=== PATIENT | male | born 1975 | race American Indian/Alaskan Native ===

== ENCOUNTER 2018-02-02 16:14 | Emergency (ER) | payer SELFPAY ==
[2018-02-02] MEDS ORDERED: ULTRAM PO ONE (19:14)
[2018-02-02] MEDS ORDERED: DELTASONE PO ONE (19:14)
--- NOTE | 2018-02-02 19:28 | Emergency Department Report ---
ED General Adult HPI - General Chief complaint: Extremity Injury, Lower Stated complaint: LEFT ANKLE AND RIGHT ELBOW PAIN Time Seen by Provider: 02/02/18 19:14 Source: patient Mode of arrival: Ambulatory Limitations: No Limitations - History of Present Illness Initial comments: Patient 42-year-old male with a history of gout patient presents for gout exacerbation to left foot and ankle and right elbow states pain and swelling 5/10 7 days usual treatment indomethacin for exacerbation however out of indomethacin along with prednisone maintenance doses of allopurinol 200 mg patient also out of allopurinol also requests a refill of Percocet patient currently does not have PCP patient denies fever chills patient is currently ambulatory 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 Onset/Timin -: Sudden Location: upper extremity, lower extremity Radiation: extremity Severity scale (0 -10): 5 Quality: aching Consistency: constant Worsens with: movement Treatments Prior to Arrival: none - Related Data Previous Rx's Medication Instructions Recorded Last Taken Type Hydrocodone Bit/Acetaminophen 1 each PO Q4H #20 tablet 08/05/13 Unknown Rx [Lortab 5-500 Tablet] Indomethacin 50 mg PO Q8H #40 capsule 08/05/13 Unknown Rx predniSONE [Deltasone] 50 mg PO QDAY #3 tab 08/05/13 Unknown Rx Acetaminophen/Codeine [Tylenol 1 tab PO Q8H PRN #7 tab 02/02/18 Unknown Rx /Codeine # 3 tab] Allopurinol 100 mg PO BID #60 tablet 02/02/18 Unknown Rx Indomethacin 50 mg PO Q8H 10 Days #30 capsule 02/02/18 Unknown Rx predniSONE [Deltasone] 40 mg PO QDAY 5 Days #20 tab 02/02/18 Unknown Rx Allergies Allergy/AdvReac Type Severity Reaction Status Date / Time No Known Allergies Allergy Verified 08/05/13 15:24 ED Review of Systems ROS: Stated complaint: LEFT ANKLE AND RIGHT ELBOW PAIN Other details as noted in HPI Constitutional: denies: chills, fever Eyes: denies: eye pain, eye discharge, vision change ENT: denies: ear pain, throat pain Respiratory: denies: cough, shortness of breath, wheezing Cardiovascular: denies: chest pain, palpitations Endocrine: no symptoms reported Gastrointestinal: denies: abdominal pain, nausea, diarrhea Genitourinary: denies: urgency, dysuria Musculoskeletal: joint swelling, arthralgia, myalgia Skin: denies: rash, lesions Neurological: denies: headache, weakness, paresthesias Psychiatric: denies: anxiety, depression Hematological/Lymphatic: denies: easy bleeding, easy bruising ED Past Medical Hx - Past Medical History Additional medical history: gout - Social History Smoking Status: Never Smoker Substance Use Type: Alcohol - Medications Home Medications: Home Medications Medication Instructions Recorded Confirmed Last Taken Type Hydrocodone Bit/Acetaminophen 1 each PO Q4H #20 tablet 08/05/13 Unknown Rx [Lortab 5-500 Tablet] Indomethacin 50 mg PO Q8H #40 capsule 08/05/13 Unknown Rx predniSONE [Deltasone] 50 mg PO QDAY #3 tab 08/05/13 Unknown Rx Acetaminophen/Codeine [Tylenol 1 tab PO Q8H PRN #7 tab 02/02/18 Unknown Rx /Codeine # 3 tab] Allopurinol 100 mg PO BID #60 tablet 02/02/18 Unknown Rx Indomethacin 50 mg PO Q8H 10 Days #30 capsule 02/02/18 Unknown Rx predniSONE [Deltasone] 40 mg PO QDAY 5 Days #20 tab 02/02/18 Unknown Rx ED Physical Exam - General Limitations: No Limitations General appearance: alert, in no apparent distress - Head Head exam: Present: atraumatic, normocephalic - Eye Eye exam: Present: normal appearance - ENT ENT exam: Present: mucous membranes moist - Neck Neck exam: Present: normal inspection - Respiratory Respiratory exam: Present: normal lung sounds bilaterally. Absent: respiratory distress - Cardiovascular Cardiovascular Exam: Present: regular rate, normal rhythm. Absent: systolic murmur, diastolic murmur, rubs, gallop - GI/Abdominal GI/Abdominal exam: Present: soft - Rectal Rectal exam: Present: deferred - Extremities Exam Extremities exam: Present: tenderness, normal capillary refill, joint swelling ( left foot and right elbow swelling warm no edema no weep no fever ), calf tenderness - Expanded Upper Extremity Exam Right Elbow exam: Present: tenderness, swelling, pain w/ pronation/supination, tenderness over radial head. Absent: abrasion, laceration, ecchymosis, deformity, crepidus, dislocation, erythema, effusion Forearm Wrist exam: Present: normal inspection, full ROM. Absent: tenderness, swelling, abrasion, laceration, ecchymosis, deformity, crepidus, dislocation, erythema, tenderness over anatomical snuff box, pain with axial thumb loading Hand Wrist exam: Present: normal inspection, full ROM. Absent: tenderness, swelling, abrasion Neuro motor exam: Present: wrist extension intact, thumb opposition intact, thumb IP flexion intact, thumb adduction intact, fingers 2-5 abduction intact Neurosensory exam: Present: 2-point discrimination, radial nerve intact, ulnar nerve intact, median nerve intact Vascular: Present: normal capillary refill, radial pulse, brachial pulse, ulnar pulse. 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 Absent : abrasion, laceration, ecchymosis, deformity, crepidus, dislocation, erythema, amputation, puncture wound, foreign body, calcaneal tenderness, tenderness at base of 5th metatarsal, nail avulsion, subungual hematoma Neuro vascular tendon exam: Present: no vascular compromise. Absent: pulse deficit, abnormal cap refill, motor deficit, sensory deficit, tendon deficit, extremity cold to touch, pallor, abnormal 2-point discrimination, decreased fine /light touch, foot drop, peroneal nerve deficit, significant pain with passive ROM of distal joint Gait: Positive: observed and limited by pain - Back Exam Back exam: Present: normal inspection, full ROM. Absent: tenderness, CVA tenderness (R), CVA tenderness (L), muscle spasm, paraspinal tenderness, vertebral tenderness, rash noted ED Course Vital Signs 02/02/18 16:42 Temperature 98.6 F Pulse Rate 74 Respiratory 18 Rate Blood Pressure 120/60 O2 Sat by Pulse 99 Oximetry ED Medical Decision Making - Medical Decision Making gout exacerbation, plan: indomethacin 50 mg po tid with meals, prednisone 40 mg po daily x 5 days, start allopurinol 200 mg po daily after completion of indomethacin follow up with pcp in 2-3 days pt verbalized agreement and understanding of same. Critical care attestation.: If time is entered above; I have spent that time in minutes in the direct care of this critically ill patient, excluding procedure time. ED Disposition Clinical Impression: Gout attack Qualifiers: Gout site: elbow Gout etiology: idiopathic Laterality: right Qualified Code(s) : M10.021 - Idiopathic gout, right elbow Disposition: DC- TO HOME OR SELFCARE Is pt being admited?: No Does the pt Need Aspirin: No Condition: Good Instructions: Acute Gouty Arthritis (ED) Prescriptions: Acetaminophen/Codeine [Tylenol /Codeine # 3 tab] 1 tab PO Q8H PRN #7 tab PRN Reason: severe pain Allopurinol 100 mg PO BID #60 tablet Indomethacin 50 mg PO Q8H 10 Days #30 capsule predniSONE [Deltasone] 40 mg PO QDAY 5 Days #20 tab Referrals: [facility] [Outside] - 3-5 Days Forms: Work/School Release Form(ED) Time of Disposition: 19:37
[2018-02-02 20:11] VITALS: BP 122/63
== END 2018-02-02 20:26 | disposition home or self-care (01) ==
LOC: ED 16:14
DX: M10.9 Gout, unspecified (principal)
CPT/HCPCS: 99282; J7512

== ENCOUNTER 2018-02-16 13:31 | Emergency (ER) | payer SELFPAY | END 2018-02-16 13:32 | disposition left against medical advice (07) | LOC: ED 13:31 | DX: Z76.0 Encounter for issue of repeat prescription (principal); Z53.21 Procedure and treatment not carried out due to patient leaving prior to being seen by health care provider ==

== ENCOUNTER 2018-02-18 17:31 | Emergency (ER) | payer OTHER ==
[2018-02-18 17:37] VITALS: BP 129/67
[2018-02-18] MEDS ORDERED: MOTRIN PO ONE (19:24)
[2018-02-18] MEDS ORDERED: DELTASONE PO ONE (19:24)
--- NOTE | 2018-02-18 19:29 | Emergency Department Report ---
<TAYLOR MONTES - Last Filed: 02/18/18 19:25> ED Lower Extremity HPI - General Chief Complaint: Extremity Injury, Lower Stated Complaint: MED REFILL Time Seen by Provider: 02/18/18 19:16 Source: patient Mode of arrival: Ambulatory Limitations: No Limitations - History of Present Illness Initial Comments: Patient 42-year-old -I[place] male with history of gout presents for left ankle pain and swelling 2 days states gout medicine for 2 weeks started allopurinol 2 days ago however pain and swelling had already begun usual. Medical medicine his indomethacin and prednisone has a follow-up appointments outside medical clinic in 2 months is no fever no chills patient is ambulatory no open wound discharge or drainage no numbness no tingling no fall injury or trauma MD Complaint: ankle injury Onset/Timin -: days(s) Injury: Ankle: Left (pain swelling aching ) Type of Injury: other (gout ) Severity scale (0 -10): 5 Improves With: NSAID Worsens With: weight bearing, movement, palpation Context: other (gout exacerbation ) Associated Symptoms: swelling, ambulatory. denies: numbness, tingling - Related Data Previous Rx's Medication Instructions Recorded Last Taken Type Hydrocodone Bit/Acetaminophen 1 each PO Q4H #20 tablet 08/05/13 Unknown Rx [Lortab 5-500 Tablet] Indomethacin 50 mg PO Q8H #40 capsule 08/05/13 Unknown Rx predniSONE [Deltasone] 50 mg PO QDAY #3 tab 08/05/13 Unknown Rx Acetaminophen/Codeine [Tylenol 1 tab PO Q8H PRN #7 tab 02/02/18 Unknown Rx /Codeine # 3 tab] Allopurinol 100 mg PO BID #60 tablet 02/02/18 Unknown Rx Indomethacin 50 mg PO Q8H 10 Days #30 capsule 02/02/18 Unknown Rx predniSONE [Deltasone] 40 mg PO QDAY 5 Days #20 tab 02/02/18 Unknown Rx Indomethacin 50 mg PO TID #30 capsule 02/18/18 Unknown Rx predniSONE [Deltasone] 40 mg PO DAILY #10 tablet 02/18/18 Unknown Rx Allergies Allergy/AdvReac Type Severity Reaction Status Date / Time No Known Allergies Allergy Verified 08/05/13 15:24 ED Review of Systems ROS: Stated complaint: MED REFILL Other details as noted in HPI Constitutional: denies: chills, fever Eyes: denies: eye pain, eye discharge, vision change ENT: denies: ear pain, throat pain Respiratory: denies: cough, shortness of breath, wheezing Cardiovascular: denies: chest pain, palpitations Endocrine: no symptoms reported Gastrointestinal: denies: abdominal pain, nausea, diarrhea Genitourinary: denies: urgency, dysuria Musculoskeletal: joint swelling, arthralgia. denies: back pain, myalgia Skin: denies: rash, lesions Psychiatric: denies: anxiety, depression Hematological/Lymphatic: denies: easy bleeding, easy bruising ED Past Medical Hx - Past Medical History Previous Medical History?: No Additional medical history: gout - Surgical History Past Surgical History?: No - Social History Smoking Status: Never Smoker Substance Use Type: None - Medications Home Medications: Home Medications Medication Instructions Recorded Confirmed Last Taken Type Hydrocodone Bit/Acetaminophen 1 each PO Q4H #20 tablet 08/05/13 Unknown Rx [Lortab 5-500 Tablet] Indomethacin 50 mg PO Q8H #40 capsule 08/05/13 Unknown Rx predniSONE [Deltasone] 50 mg PO QDAY #3 tab 08/05/13 Unknown Rx Acetaminophen/Codeine [Tylenol 1 tab PO Q8H PRN #7 tab 02/02/18 Unknown Rx /Codeine # 3 tab] Allopurinol 100 mg PO BID #60 tablet 02/02/18 Unknown Rx Indomethacin 50 mg PO Q8H 10 Days #30 capsule 02/02/18 Unknown Rx predniSONE [Deltasone] 40 mg PO QDAY 5 Days #20 tab 02/02/18 Unknown Rx Indomethacin 50 mg PO TID #30 capsule 02/18/18 Unknown Rx predniSONE [Deltasone] 40 mg PO DAILY #10 tablet 02/18/18 Unknown Rx ED Physical Exam - General Limitations: No Limitations General appearance: alert, in no apparent distress - Head Head exam: Present: atraumatic, normocephalic - Eye Eye exam: Present: normal appearance - ENT ENT exam: Present: mucous membranes moist - Neck Neck exam: Present: normal inspection - Respiratory Respiratory exam: Present: normal lung sounds bilaterally. Absent: respiratory distress - Cardiovascular Cardiovascular Exam: Present: regular rate, normal rhythm. Absent: systolic murmur, diastolic murmur, rubs, gallop - GI/Abdominal GI/Abdominal exam: Present: soft, normal bowel sounds - Rectal Rectal exam: Present: deferred - Extremities Exam Extremities exam: Present: tenderness (left lateral ankle ), normal capillary refill, joint swelling. Absent: pedal edema, calf tenderness - Expanded Lower Extremity Exam Left Ankle exam: Present: tenderness, swelling. Absent: abrasion, laceration, ecchymosis, deformity, crepidus, dislocation, erythema, anterior draw sign Foot/Toe exam: Present: normal inspection, full ROM, swelling. Absent: tenderness, abrasion, laceration, ecchymosis, deformity, crepidus, dislocation, erythema, amputation, puncture wound, foreign body, calcaneal tenderness, tenderness at base of 5th metatarsal, nail avulsion, subungual hematoma Neuro vascular tendon exam: Present: no vascular compromise. Absent: pulse deficit, abnormal cap refill, motor deficit, sensory deficit, tendon deficit, extremity cold to touch, pallor, abnormal 2-point discrimination, decreased fine /light touch, foot drop, peroneal nerve deficit, significant pain with passive ROM of distal joint Gait: Positive: observed and normal - Back Exam Back exam: Present: normal inspection - Neurological Exam Neurological exam: Present: alert, oriented X3, CN II-XII intact, normal gait, reflexes normal. Absent: motor sensory deficit - Psychiatric Psychiatric exam: Present: normal affect, normal mood - Skin Skin exam: Present: warm, dry, intact, normal color. Absent: rash ED Course Vital Signs 02/18/18 17:35 Temperature 98.2 F Pulse Rate 91 H Respiratory 16 Rate Blood Pressure 129/67 O2 Sat by Pulse 99 Oximetry ED Lower Extremity MDM - Medical Decision Making As a gout flare, mild ankle swelling no fever mild pain with rotation ppepb+2, pt is ambulatory without gait disturbance pain improved with nsaids and prednisone given in ed plan: dc home in stable condition, with rx for prednisone 40mg po daily x 5 days, indomethacin 50mg po tid with meals x 10 days , restart allopurinol po after completion of indomethacin follow up with [facility] as scheduled , pt verbalized agreement and understanding with discharge plan. Critical care attestation.: If time is entered above; I have spent that time in minutes in the direct care of this critically ill patient, excluding procedure time. ED Disposition Disposition: DC-01 TO HOME OR SELFCARE Is pt being admited?: No Does the pt Need Aspirin: No Condition: Good Instructions: Low Purine Diet (ED), Acute Gouty Arthritis (ED) Prescriptions: Indomethacin 50 mg PO TID #30 capsule predniSONE [Deltasone] 40 mg PO DAILY #10 tablet Referrals: [facility] [Outside] - 3-5 Days Forms: Work/School Release Form(ED) Time of Disposition: 19:37 <GENEVIEVE MORGAN - Last Filed: 02/19/18 19:59> ED Lower Extremity MDM - Medical Decision Making I was available for consultations at all times during the patient stay. I did not personally see and was not involved in the care of the patient.
== END 2018-02-18 19:54 | disposition home or self-care (01) ==
LOC: ED 17:31
DX: M10.9 Gout, unspecified (principal); Z79.899 Other long term (current) drug therapy
CPT/HCPCS: 99282; J7512

== ENCOUNTER 2018-10-14 14:24 | Emergency (ER) | payer OTHER, MEDICAID ==
[2018-10-14 14:32] VITALS: BP 127/69
[2018-10-14] MEDS ORDERED: DECADRON IM ONE (14:32)
--- NOTE | 2018-10-14 14:33 | Emergency Department Report ---
ED Lower Extremity HPI - General Chief Complaint: Extremity Injury, Lower Stated Complaint: GOUT Time Seen by Provider: 10/14/18 14:28 Source: patient Mode of arrival: Ambulatory Limitations: No Limitations - History of Present Illness Initial Comments: This is a 43-year-old male that presents with right ankle pain and swelling. Stated has history of gout and symptoms are similar. Denies any injuries. Denies any fever or chills. Denies any numbness, tingling, chest pain, shortness of breathe, headache, or stiff neck. Denies any allergies or PMH. Patient stated usually gets steroids shot and indomethacin. MD Complaint: ankle injury Injury: Ankle: Right Severity: mild Severity scale (0 -10): 8 Improves With: immobilization Worsens With: weight bearing, movement, palpation Associated Symptoms: swelling, ambulatory. denies: snap/pop sensation, numbness, tingling, unable to bear weight, able to partially bear weight - Related Data Previous Rx's Medication Instructions Recorded Last Taken Type Hydrocodone Bit/Acetaminophen 1 each PO Q4H #20 tablet 08/05/13 Unknown Rx [Lortab 5-500 Tablet] Indomethacin 50 mg PO Q8H #40 capsule 08/05/13 Unknown Rx predniSONE [Deltasone] 50 mg PO QDAY #3 tab 08/05/13 Unknown Rx Acetaminophen/Codeine [Tylenol 1 tab PO Q8H PRN #7 tab 02/02/18 Unknown Rx /Codeine # 3 tab] predniSONE [Deltasone] 40 mg PO QDAY 5 Days #20 tab 02/02/18 Unknown Rx Indomethacin 50 mg PO TID #30 capsule 02/18/18 Unknown Rx predniSONE [Deltasone] 40 mg PO DAILY #10 tablet 02/18/18 Unknown Rx Allopurinol 100 mg PO BID #60 tablet 06/30/18 Unknown Rx HYDROcodone/APAP 5-325 [[place] 1 each PO Q6HR PRN #15 tablet 06/30/18 Unknown Rx 5/325] Indomethacin 50 mg PO Q8H 10 Days #30 capsule 06/30/18 Unknown Rx Acetaminophen/Codeine [Tylenol 1 tab PO Q6H PRN #12 tab 10/14/18 Unknown Rx /Codeine # 3 tab] Ibuprofen [Motrin] 600 mg PO Q8H PRN #20 tablet 10/14/18 Unknown Rx Indomethacin 50 mg PO Q8H 10 Days capsule 10/14/18 Unknown Rx Prednisone [predniSONE 10 mg 10 mg PO .TAPER #1 tab.ds.pk 10/14/18 Unknown Rx (6-Day Pack, 21 Tabs)] Allergies Allergy/AdvReac Type Severity Reaction Status Date / Time No Known Allergies Allergy Verified 08/05/13 15:24 ED Review of Systems ROS: Stated complaint: GOUT Other details as noted in HPI Constitutional: denies: chills, fever Eyes: denies: eye pain, eye discharge, vision change ENT: denies: ear pain, throat pain Respiratory: denies: cough, shortness of breath, wheezing Cardiovascular: denies: chest pain, palpitations Endocrine: no symptoms reported Gastrointestinal: denies: abdominal pain, nausea, diarrhea Genitourinary: denies: urgency, dysuria Musculoskeletal: denies: back pain, joint swelling, arthralgia Skin: denies: rash, lesions Neurological: denies: headache, weakness, paresthesias Psychiatric: denies: anxiety, depression Hematological/Lymphatic: denies: easy bleeding, easy bruising ED Past Medical Hx - Past Medical History Additional medical history: gout - Social History Smoking Status: Former Smoker Substance Use Type: Alcohol, Prescribed - Medications Home Medications: Home Medications Medication Instructions Recorded Confirmed Last Taken Type Hydrocodone Bit/Acetaminophen 1 each PO Q4H #20 tablet 08/05/13 Unknown Rx [Lortab 5-500 Tablet] Indomethacin 50 mg PO Q8H #40 capsule 08/05/13 Unknown Rx predniSONE [Deltasone] 50 mg PO QDAY #3 tab 08/05/13 Unknown Rx Acetaminophen/Codeine [Tylenol 1 tab PO Q8H PRN #7 tab 02/02/18 Unknown Rx /Codeine # 3 tab] predniSONE [Deltasone] 40 mg PO QDAY 5 Days #20 tab 02/02/18 Unknown Rx Indomethacin 50 mg PO TID #30 capsule 02/18/18 Unknown Rx predniSONE [Deltasone] 40 mg PO DAILY #10 tablet 02/18/18 Unknown Rx Allopurinol 100 mg PO BID #60 tablet 06/30/18 Unknown Rx HYDROcodone/APAP 5-325 [[place] 1 each PO Q6HR PRN #15 tablet 06/30/18 Unknown Rx 5/325] Indomethacin 50 mg PO Q8H 10 Days #30 capsule 06/30/18 Unknown Rx Acetaminophen/Codeine [Tylenol 1 tab PO Q6H PRN #12 tab 10/14/18 Unknown Rx /Codeine # 3 tab] Ibuprofen [Motrin] 600 mg PO Q8H PRN #20 tablet 10/14/18 Unknown Rx Indomethacin 50 mg PO Q8H 10 Days capsule 10/14/18 Unknown Rx Prednisone [predniSONE 10 mg 10 mg PO .TAPER #1 tab.ds.pk 10/14/18 Unknown Rx (6-Day Pack, 21 Tabs)] ED Physical Exam - General Limitations: No Limitations General appearance: alert, in no apparent distress - Head Head exam: Present: atraumatic, normocephalic - Extremities Exam Extremities exam: Present: normal inspection, full ROM, tenderness, normal capillary refill. Absent: joint swelling - Expanded Lower Extremity Exam Right Hip exam: Present: normal inspection, full ROM. Absent: tenderness Upper Leg exam: Present: normal inspection, full ROM. Absent: tenderness Knee exam: Present: normal inspection, full ROM. Absent: tenderness Lower Leg exam: Present: normal inspection, full ROM. Absent: tenderness Ankle exam: Present: normal inspection, full ROM, tenderness, swelling. Absent: abrasion, laceration, ecchymosis, deformity, crepidus, dislocation, erythema, anterior draw sign Foot/Toe exam: Present: normal inspection, full ROM. Absent: tenderness Neuro vascular tendon exam: Present: no vascular compromise Gait: Positive: observed and limited by pain - Back Exam Back exam: Present: normal inspection, full ROM - Neurological Exam Neurological exam: Present: alert, oriented X3 - Psychiatric Psychiatric exam: Present: normal affect, normal mood - Skin Skin exam: Present: warm, dry, intact, normal color. Absent: rash - Other Other exam information: No signs of cellulitis. no abscess. ED Course - Reevaluation(s) Reevaluation #1: 10/14/18 14:32 Patient is speaking in full sentences with no signs of distress noted. Critical care attestation.: If time is entered above; I have spent that time in minutes in the direct care of this critically ill patient, excluding procedure time. ED Disposition Clinical Impression: Gout flare Qualifiers: Gout site: ankle Gout etiology: unspecified cause Laterality: right Qualified Code(s): M10.9 - Gout, unspecified Disposition: TO HOME OR SELFCARE Is pt being admited?: No Does the pt Need Aspirin: No Condition: Stable Instructions: Acute Gouty Arthritis (ED), Acetaminophen/Codeine (By mouth) Additional Instructions: Follow-up with a primary care doctor in 3-5 days or if symptoms worsen and continue return to the ED as soon as possible. Prescriptions: Acetaminophen/Codeine [Tylenol /Codeine # 3 tab] 1 tab PO Q6H PRN #12 tab PRN Reason: Pain , Severe (7-10) Ibuprofen [Motrin] 600 mg PO Q8H PRN #20 tablet PRN Reason: Pain Indomethacin 50 mg PO Q8H 10 Days capsule Prednisone [predniSONE 10 mg (6-Day Pack, 21 Tabs)] 10 mg PO .TAPER #1 tab.ds.pk Referrals: PRIMARY CAREMD [Referring] - 3-5 Days JANEL ELIZONDO MD [Staff Physician] - 3-5 Days [facility] [Outside] - 3-5 Days [facility] [Outside] - 3-5 Days
== END 2018-10-14 14:40 | disposition home or self-care (01) ==
LOC: ED 14:24
DX: M10.071 Idiopathic gout, right ankle and foot (principal); Z87.891 Personal history of nicotine dependence
CPT/HCPCS: 96372; 99282; J1100

== ENCOUNTER 2018-12-30 00:19 | Emergency (ER) | payer MEDICAID, OTHER ==
[2018-12-30 01:09] VITALS: BP 126/86
[2018-12-30] MEDS ORDERED: DECADRON IM ONE (05:43)
[2018-12-30] MEDS ORDERED: TORADOL IM ONE (05:43)
--- NOTE | 2018-12-30 06:30 | Emergency Department Report ---
ED Extremity Problem HPI - General Chief complaint: Extremity Problem,Nontraumatic Stated complaint: LEFT FOOT PAIN/GOUT Time Seen by Provider: 12/30/18 05:40 Source: patient Mode of arrival: Ambulatory Limitations: No Limitations - History of Present Illness Initial comments: Patient is a 43-year-old, AA male with a history of chronic gouty arthropathy who presents to the ED complaining of acute exacerbation of his chronic pain, affecting the left foot and left ankle for the last 3 days. Patient admits to having been drinking alcohol all week and eating meat and seafood despite the fact that he that these risks for gouty arthropathy flare. Patient denies fall, traumatic injury, fever, chills, nausea, vomiting, numbness and tingling of lower extremities bilaterally. MD Complaint: extremity pain (left foot and ankle), extremity swelling (left foot and ankle), joint swelling, joint paint -: Gradual, month(s) (chronic), year(s) (chronic) Location: lower extremity (left ankle and foot) History of Same: Yes -: Yes myalgia, Yes arthralgia Radiation: distal Severity scale (0 -10): 7 Quality: aching, sharp Consistency: constant Improves with: nothing Worsens with: nothing Associated Symptoms: arthralgias. denies: chest pain, shortness of breath, fever, myalgias, rash, other - Related Data Previous Rx's Medication Instructions Recorded Last Taken Type Hydrocodone Bit/Acetaminophen 1 each PO Q4H #20 tablet 08/05/13 Unknown Rx [Lortab 5-500 Tablet] predniSONE [Deltasone] 50 mg PO QDAY #3 tab 08/05/13 Unknown Rx Acetaminophen/Codeine [Tylenol 1 tab PO Q8H PRN #7 tab 02/02/18 Unknown Rx /Codeine # 3 tab] predniSONE [Deltasone] 40 mg PO QDAY 5 Days #20 tab 02/02/18 Unknown Rx Indomethacin 50 mg PO TID #30 capsule 02/18/18 Unknown Rx predniSONE [Deltasone] 40 mg PO DAILY #10 tablet 02/18/18 Unknown Rx Allopurinol 100 mg PO BID #60 tablet 06/30/18 Unknown Rx HYDROcodone/APAP 5-325 [[place] 1 each PO Q6HR PRN #15 tablet 06/30/18 Unknown Rx 5/325] Indomethacin 50 mg PO Q8H 10 Days #30 capsule 06/30/18 Unknown Rx Acetaminophen/Codeine [Tylenol 1 tab PO Q6H PRN #12 tab 10/14/18 Unknown Rx /Codeine # 3 tab] Ibuprofen [Motrin] 600 mg PO Q8H PRN #20 tablet 10/14/18 Unknown Rx Indomethacin 50 mg PO Q8H 10 Days capsule 10/14/18 Unknown Rx Prednisone [predniSONE 10 mg 10 mg PO .TAPER #1 tab.ds.pk 10/14/18 Unknown Rx (6-Day Pack, 21 Tabs)] Allopurinol [Zyloprim] 100 mg PO QDAY #30 tablet 12/30/18 Unknown Rx Indomethacin 50 mg PO Q8H PRN #40 capsule 12/30/18 Unknown Rx predniSONE [Deltasone] 60 mg PO DAILY #15 tablet 12/30/18 Unknown Rx traMADol [Ultram] 50 mg PO Q6HR PRN #15 tablet 12/30/18 Unknown Rx Allergies Allergy/AdvReac Type Severity Reaction Status Date / Time No Known Allergies Allergy Verified 08/05/13 15:24 ED Review of Systems ROS: Stated complaint: LEFT FOOT PAIN/GOUT Other details as noted in HPI Comment: All other systems reviewed and negative Constitutional: no symptoms reported, see HPI. denies: diaphoresis, fever, malaise Eyes: as per HPI. denies: eye pain, eye discharge ENT: as per HPI. denies: ear pain, throat pain, dental pain, hearing loss Respiratory: no symptoms reported, see HPI. denies: cough, orthopnea, shortness of breath, SOB with exertion, SOB at rest Cardiovascular: as per HPI. denies: chest pain, palpitations Endocrine: no symptoms reported, see HPI. denies: excessive sweating, flushing, increased hunger Gastrointestinal: as per HPI. denies: abdominal pain, nausea, vomiting Genitourinary: as per HPI. denies: urgency, dysuria, frequency, hematuria, testicular pain, testicular mass Musculoskeletal: as per HPI, joint swelling (left ankle and foot), arthralgia. denies: back pain Skin: as per HPI. denies: rash, lesions, change in color, change in hair/nails Neurological: as per HPI. denies: headache, weakness Psychiatric: as per HPI. denies: anxiety, depression, visual hallucinations Hematological/Lymphatic: as per HPI ED Past Medical Hx - Past Medical History Previous Medical History?: Yes Hx Arthritis: Yes (gouty athropathy) Additional medical history: gout - Social History Smoking Status: Former Smoker Substance Use Type: Alcohol, Prescribed - Medications Home Medications: Home Medications Medication Instructions Recorded Confirmed Last Taken Type Hydrocodone Bit/Acetaminophen 1 each PO Q4H #20 tablet 08/05/13 Unknown Rx [Lortab 5-500 Tablet] predniSONE [Deltasone] 50 mg PO QDAY #3 tab 08/05/13 Unknown Rx Acetaminophen/Codeine [Tylenol 1 tab PO Q8H PRN #7 tab 02/02/18 Unknown Rx /Codeine # 3 tab] predniSONE [Deltasone] 40 mg PO QDAY 5 Days #20 tab 02/02/18 Unknown Rx Indomethacin 50 mg PO TID #30 capsule 02/18/18 Unknown Rx predniSONE [Deltasone] 40 mg PO DAILY #10 tablet 02/18/18 Unknown Rx Allopurinol 100 mg PO BID #60 tablet 06/30/18 Unknown Rx HYDROcodone/APAP 5-325 [[place] 1 each PO Q6HR PRN #15 tablet 06/30/18 Unknown Rx 5/325] Indomethacin 50 mg PO Q8H 10 Days #30 capsule 06/30/18 Unknown Rx Acetaminophen/Codeine [Tylenol 1 tab PO Q6H PRN #12 tab 10/14/18 Unknown Rx /Codeine # 3 tab] Ibuprofen [Motrin] 600 mg PO Q8H PRN #20 tablet 10/14/18 Unknown Rx Indomethacin 50 mg PO Q8H 10 Days capsule 10/14/18 Unknown Rx Prednisone [predniSONE 10 mg 10 mg PO .TAPER #1 tab.ds.pk 10/14/18 Unknown Rx (6-Day Pack, 21 Tabs)] Allopurinol [Zyloprim] 100 mg PO QDAY #30 tablet 12/30/18 Unknown Rx Indomethacin 50 mg PO Q8H PRN #40 capsule 12/30/18 Unknown Rx predniSONE [Deltasone] 60 mg PO DAILY #15 tablet 12/30/18 Unknown Rx traMADol [Ultram] 50 mg PO Q6HR PRN #15 tablet 12/30/18 Unknown Rx ED Physical Exam - General Limitations: No Limitations General appearance: alert, in no apparent distress - Head Head exam: Present: atraumatic, normal inspection - Eye Eye exam: Present: normal appearance, PERRL, EOMI Pupils: Present: normal accommodation - ENT ENT exam: Present: normal exam, normal orophraynx, mucous membranes moist, TM's normal bilaterally, normal external ear exam - Neck Neck exam: Present: normal inspection, full ROM. Absent: tenderness, lymphadenopathy - Respiratory Respiratory exam: Present: normal lung sounds bilaterally. Absent: wheezes, rales, rhonchi, chest wall tenderness, accessory muscle use, decreased breath sounds - Cardiovascular Cardiovascular Exam: Present: regular rate, normal rhythm, normal heart sounds - GI/Abdominal GI/Abdominal exam: Present: soft, normal bowel sounds. Absent: tenderness, guarding, hyperactive bowel sounds - Rectal Rectal exam: Present: deferred - Extremities Exam Extremities exam: Present: normal inspection, full ROM, tenderness (left foot and ankle), normal capillary refill, joint swelling (left foot and ankle) - Back Exam Back exam: Present: normal inspection, full ROM, CVA tenderness (R). Absent: tenderness, CVA tenderness (L), muscle spasm, paraspinal tenderness - Neurological Exam Neurological exam: Present: alert, oriented X3, CN II-XII intact, normal gait, motor sensory deficit, reflexes normal - Psychiatric Psychiatric exam: Present: normal affect - Skin Skin exam: Present: warm, dry, intact, normal color ED Course Vital Signs 12/30/18 00:38 Temperature 98.3 F Pulse Rate 67 Respiratory 18 Rate Blood Pressure 126/86 O2 Sat by Pulse 100 Oximetry - Reevaluation(s) Reevaluation #1: 12/30/18 06:38 Patient is alert and oriented 3 and is not in distress with normal vital signs. Patient was treated for pain in the ED and discharged home on pain medications. Patient advised to follow-up with his primary care physician in 7- 10 days for reevaluation or return to the ED immediately if symptoms get worse. ED Medical Decision Making - Differential Diagnosis Gouty arthropathy, Osteoarthritis Critical care attestation.: If time is entered above; I have spent that time in minutes in the direct care of this critically ill patient, excluding procedure time. ED Disposition Clinical Impression: Gouty arthropathy Chronic pain Qualifiers: Chronic pain type: other chronic pain Qualified Code(s): G89.29 - Other chronic pain Disposition: TO HOME OR SELFCARE Is pt being admited?: No Does the pt Need Aspirin: No Condition: Stable Instructions: Acute Gouty Arthritis (ED), Chronic Pain (ED) Additional Instructions: Take medications with food, drink plenty of fluids and follow-up with your primary care physician as advised. Return to the ED immediately if symptoms get worse. Prescriptions: predniSONE [Deltasone] 60 mg PO DAILY #15 tablet Indomethacin 50 mg PO Q8H PRN #40 capsule PRN Reason: Pain , Severe (7-10) traMADol [Ultram] 50 mg PO Q6HR PRN #15 tablet PRN Reason: Pain Allopurinol [Zyloprim] 100 mg PO QDAY #30 tablet Referrals: SHIRA KISER MD [Primary Care Provider] - 3-5 Days Time of Disposition: 06:30 Print Language: CENTRAL AFRICAN
== END 2018-12-30 06:56 | disposition home or self-care (01) ==
LOC: ED 00:19
DX: M10.9 Gout, unspecified (principal); G89.29 Other chronic pain
CPT/HCPCS: 96372; 99281; J1100; J1885

== ENCOUNTER 2022-02-22 01:58 | Emergency (ER) | payer MEDICAID, OTHER ==
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
[2022-02-22 07:04] VITALS: BP 119/79
== END 2022-02-22 07:05 | disposition home or self-care (01) ==
LOC: ED 01:58
DX: S01.01XA Laceration without foreign body of scalp, initial encounter (principal); M10.9 Gout, unspecified; Z79.899 Other long term (current) drug therapy; W18.39XA Other fall on same level, initial encounter; Y93.89 Activity, other specified; Y92.89 Other specified places as the place of occurrence of the external cause; Y99.8 Other external cause status
CPT/HCPCS: 70450; 99283